=== PATIENT | male | born 1950 | race Caucasian/White ===

== ENCOUNTER 2019-03-17 11:51 | Inpatient (IN) | payer MEDICARE, MEDICAID ==
[~2019-03-17] VITALS: Ht 193 cm; Wt 91.2 kg
[2019-03-17 12:14] LABS: EOSINOPHILS % (AUTO) 2.3 % (0.0-6.0); HEMATOCRIT 36 % (39-51); HEMOGLOBIN 12.3 g/dL (13.5-17.5); LYMPHOCYTES # (AUTO) 1.2 /CMM (0.8-4.8); LYMPHOCYTES % (AUTO) 31.6 % (20.0-44.0); MEAN CORPUSCULAR HGB CONC 34 g/dl (31.0-36.0); MEAN CORPUSCULAR VOLUME 87 fL (80-96); MONOCYTES # (AUTO) 0.3 /CMM (0.1-1.30); MONOCYTES % (AUTO) 7.4 % (2.0-12.0); NEUTROPHILS # (AUTO) 2.2 /CMM (1.8-8.9); NEUTROPHILS % (AUTO) 57.7 % (43.0-81.0); PLATELET COUNT (AUTO) 238 /CMM (150-450); RED BLOOD CELL COUNT(AUTO) 4.13 MIL/uL (4.5-6.0); WHITE BLOOD COUNT (AUTO) 3.8 K/uL (4.3-11.0)
--- NOTE | 2019-03-17 12:16 | NUR ---
[facility] on 5150 from [place] agressive behavior/agitation. PT AAOX3, VSS. RR EVEN & UNLABORED. CALM & COOPERATIVE. DENIES CP, SOB, DIZZINESS, N/V, WEAKNESS @ THIS TIME. WILL CONT TO MONITOR. SHANITER @ BS.
[2019-03-17 12:21] LABS: CALCIUM, SERUM 9.2 mg/dL (8.5-10.1); CARBON DIOXIDE 25 mmol/L (21-32); CHLORIDE 108 mmol/L (98-107); CREATININE 1.2 mg/dL (0.6-1.3); GLUCOSE 103 mg/dL (74-106); POTASSIUM 3.5 mmol/L (3.5-5.1); SODIUM SERUM 144 mmol/L (136-145); UREA NITROGEN, BLOOD 24 mg/dL (7-18)
[2019-03-17 12:26] LABS: ALANINE AMINOTRANSFERASE 19 U/L (12-78); ALBUMIN 3.7 g/dL (3.4-5.0); ALKALINE PHOSPHATASE 113 U/L (46-116); ASPARTATE AMINOTRANSFERASE 18 U/L (15-37); BILIRUBIN,DIRECT 0.2 mg/dL (0.0-0.2); BILIRUBIN,TOTAL 0.9 mg/dL (0.2-1.0); TOTAL PROTEIN, SERUM 7.6 g/dL (6.4-8.2)
[2019-03-17 12:27] LABS: ACETAMINOPHEN 0 ug/ml (10-30); ALCOHOL, BLOOD < 3 mg/dL (0-0)
--- NOTE | 2019-03-17 12:35 | NUR ---
SOCORRO RADFORD @ BS FOR JOHNNYAL.
--- NOTE | 2019-03-17 13:30 | NUR ---
CALLED FOR MED-SURGE BED, TURNED IN MOVE SHEET, AND PAGED SHUKRI LONDON WHO CALLED BACK.
--- NOTE | 2019-03-17 13:32 | NUR ---
CALLED FOR GPS BED, TURNED IN MOVE SHEET
[2019-03-17] MEDS ORDERED: PARO10TA86 PO (13:38)
[2019-03-17] MEDS ORDERED: AMLO5TAB4 PO (13:38)
[2019-03-17] MEDS ORDERED: QUET25TA PO (13:38)
[2019-03-17] MEDS ORDERED: FAMO-131 PO (13:38)
[2019-03-17] MEDS ORDERED: LACT10SO PO (13:42)
[2019-03-17] MEDS ORDERED: CARV6.25 PO (13:42)
[2019-03-17] MEDS ORDERED: PERP2TAB PO ×2 (13:42)
[2019-03-17] MEDS ORDERED: FERR325T23 PO (13:42)
[2019-03-17] MEDS ORDERED: ASPI-1152 PO (13:42)
[2019-03-17] MEDS ORDERED: CHOL200059 PO (13:43)
[2019-03-17] MEDS ORDERED: BENA40TA67 PO (13:43)
[2019-03-17] MEDS ORDERED: ATOR20TA PO (13:43)
[2019-03-17 13:55] LABS: APPEARANCE,URINE Clear (CLEAR); BILIRUBIN,URINE SMALL (NEGATIVE); BLOOD, URINE Trace-intact Ery/uL (NEGATIVE); COLOR,URINE Dark (YELLOW); KETONES,URINE Trace (NEGATIVE); LEUKOCYTE ESTERASE ,URINE Negative (NEGATIVE); NITRITE, URINE Negative (NEGATIVE); PH,URINE 5.5 (5.0-8.0); PROTEIN,URINE Trace mg/dl (NEGATIVE); UGLUCOSE Negative (NEGATIVE)
[2019-03-17 14:10] LABS: BACTERIA,URINE Rare /HPF (None Seen); SQUAMOUS EPITHELIAL CELL,UR Rare /HPF (None Seen); WBC,URINE 0-2 /HPF (0-3)
--- NOTE | 2019-03-17 14:30 | NUR ---
Patient is resting comfortably in bed with eyes closed. Easily aroused. VSS
--- NOTE | 2019-03-17 15:39 | NUR ---
REPORT GIVEN TO MONA PORTILLO FOR TAMERA
--- NOTE | 2019-03-17 16:38 | NUR ---
Pt. arrived in the unit via a wheel chair and brought in by ER staff. Dr. Guerin covering for Dr. Scott made aware of the admission and gave order.
[2019-03-17 16:41] VITALS: BP 102/93
[2019-03-17] MEDS ORDERED: MAGNESIUM HYDROXIDE 30 ML UDC PO PRN (17:00)
[2019-03-17] MEDS ORDERED: BLOOD SUGAR DIAGNOSTIC 1 EACH STRIP IN ONE (17:00)
[2019-03-17] MEDS ORDERED: MAG HYDROX/AL HYDROX/SIMETH 30 ML UDC PO PRN (17:00)
[2019-03-17] MEDS ORDERED: ACETAMINOPHEN 325 MG TABLET PO PRN (17:00)
[2019-03-17] MEDS ORDERED: TEMAZEPAM 7.5 MG CAPSULE PO PRN (17:00)
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
[2019-03-17 20:00] VITALS: BP 144/88
[2019-03-18 08:00] VITALS: BP_SYST 124; BP_SYST 143; BP_DIAS 82; BP_DIAS 87
[2019-03-18] MEDS: ASPIRIN EC 81 MG TABLET.DR PO SCH (08:48)
[2019-03-18] MEDS: FERROUS SULFATE (325 MG) 325 MG/TAB TABLET PO SCH ×2 (08:48→17:08)
[2019-03-18] MEDS: FAMOTIDINE (20 MG) 20 MG TABLET PO SCH ×2 (08:48→17:08)
[2019-03-18] MEDS: CHOLECALCIFEROL 1,000 UNIT TABLET (VIT D3) PO SCH (08:49)
[2019-03-18] MEDS: CARVEDILOL 6.25 MG TABLET PO SCH ×2 (08:49→17:08)
[2019-03-18] MEDS: BENAZEPRIL HCL 20 MG TABLET PO SCH (08:49)
[2019-03-18] MEDS: ATORVASTATIN 10 MG TABLET PO SCH (08:49)
[2019-03-18] MEDS: AMLODIPINE BESYLATE 5 MG TABLET PO SCH (08:50)
[2019-03-18] MEDS: LACTULOSE 10 G/15 ML UDC (PYXIS) PO SCH (09:01)
--- NOTE | 2019-03-18 14:49 | NUR ---
[facility][phone][facility] and she stated that the pt can return to their facility but that she would prefer for the pt to be discharged to [facility] first for stabilization.
--- NOTE | 2019-03-18 14:51 | NUR ---
Initial Discharge Plan: Pt currently resides at [facility] located at [address] [place] [address]; ([phone]). Per facility, they will take the pt back but would like for him to be placed at a [facility] facility first. SW will work with the MD and the pt regarding appropriate discharge planning. SW will form a safe and proper discharge.
[2019-03-18 16:00] VITALS: BP 135/84
[2019-03-18] MEDS: QUETIAPINE FUMARATE 100 MG TABLET PO SCH ×2 (17:39→21:25)
[2019-03-18] MEDS: DIVALPROEX SODIUM 250 MG TABLET.DR PO SCH (17:39)
[2019-03-18 20:00] VITALS: BP 135/81
[2019-03-19 08:00] VITALS: BP 145/62
[2019-03-19] MEDS ORDERED: LORAZEPAM INJ 2 MG/ML VIAL IM ONE (09:00)
[2019-03-19] MEDS: DIVALPROEX SODIUM 250 MG TABLET.DR PO SCH ×3 (09:00→17:45)
[2019-03-19] MEDS: QUETIAPINE FUMARATE 100 MG TABLET PO SCH ×3 (09:00→21:47)
[2019-03-19] MEDS: CARVEDILOL 6.25 MG TABLET PO SCH ×2 (09:00→17:46)
[2019-03-19] MEDS: LACTULOSE 10 G/15 ML UDC (PYXIS) PO SCH (09:00)
[2019-03-19] MEDS ORDERED: OLANZAPINE 10 MG VIAL IM ONE (09:00)
[2019-03-19] MEDS: FAMOTIDINE (20 MG) 20 MG TABLET PO SCH ×2 (09:00→17:46)
[2019-03-19] MEDS: ATORVASTATIN 10 MG TABLET PO SCH (09:00)
[2019-03-19] MEDS: AMLODIPINE BESYLATE 5 MG TABLET PO SCH (09:00)
[2019-03-19] MEDS: PAROXETINE HCL 20 MG TABLET PO SCH (09:00)
[2019-03-19] MEDS: CHOLECALCIFEROL 1,000 UNIT TABLET (VIT D3) PO SCH (09:00)
[2019-03-19] MEDS: BENAZEPRIL HCL 20 MG TABLET PO SCH (09:00)
[2019-03-19] MEDS: FERROUS SULFATE (325 MG) 325 MG/TAB TABLET PO SCH ×2 (09:00→17:45)
[2019-03-19] MEDS: ASPIRIN EC 81 MG TABLET.DR PO SCH (09:00)
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
[2019-03-19 16:00] VITALS: BP 136/76
[2019-03-19 20:00] VITALS: BP 135/70
[2019-03-20 08:00] VITALS: BP 160/85
[2019-03-20] MEDS: PAROXETINE HCL 20 MG TABLET PO SCH (09:20)
[2019-03-20] MEDS: LACTULOSE 10 G/15 ML UDC (PYXIS) PO SCH (09:20)
[2019-03-20] MEDS: QUETIAPINE FUMARATE 100 MG TABLET PO SCH ×3 (09:20→21:13)
[2019-03-20] MEDS: ASPIRIN EC 81 MG TABLET.DR PO SCH (09:21)
[2019-03-20] MEDS: FAMOTIDINE (20 MG) 20 MG TABLET PO SCH ×2 (09:21→17:02)
[2019-03-20] MEDS: AMLODIPINE BESYLATE 5 MG TABLET PO SCH (09:21)
[2019-03-20] MEDS: DIVALPROEX SODIUM 250 MG TABLET.DR PO SCH ×2 (09:21→17:01)
[2019-03-20] MEDS: FERROUS SULFATE (325 MG) 325 MG/TAB TABLET PO SCH ×2 (09:21→17:01)
[2019-03-20] MEDS: ATORVASTATIN 10 MG TABLET PO SCH (09:21)
[2019-03-20] MEDS: BENAZEPRIL HCL 20 MG TABLET PO SCH (09:22)
[2019-03-20] MEDS: CHOLECALCIFEROL 1,000 UNIT TABLET (VIT D3) PO SCH (09:23)
[2019-03-20] MEDS: CARVEDILOL 6.25 MG TABLET PO SCH ×2 (09:24→17:02)
[2019-03-20 16:00] VITALS: BP 151/71
[2019-03-20 20:00] VITALS: BP 108/57
[2019-03-20] MEDS: LORAZEPAM 0.5 MG TABLET PO PRN (20:10)
[2019-03-20 22:01] VITALS: BP 109/66
[2019-03-21 08:00] VITALS: BP 137/72
[2019-03-21] MEDS: BENAZEPRIL HCL 20 MG TABLET PO SCH (09:16)
[2019-03-21] MEDS: DIVALPROEX SODIUM 250 MG TABLET.DR PO SCH ×2 (09:16→16:47)
[2019-03-21] MEDS: ASPIRIN EC 81 MG TABLET.DR PO SCH (09:16)
[2019-03-21] MEDS: LACTULOSE 10 G/15 ML UDC (PYXIS) PO SCH (09:16)
[2019-03-21] MEDS: PAROXETINE HCL 20 MG TABLET PO SCH (09:17)
[2019-03-21] MEDS: CHOLECALCIFEROL 1,000 UNIT TABLET (VIT D3) PO SCH (09:17)
[2019-03-21] MEDS: FAMOTIDINE (20 MG) 20 MG TABLET PO SCH ×2 (09:17→16:47)
[2019-03-21] MEDS: CARVEDILOL 6.25 MG TABLET PO SCH ×2 (09:17→16:48)
[2019-03-21] MEDS: FERROUS SULFATE (325 MG) 325 MG/TAB TABLET PO SCH ×2 (09:17→16:47)
[2019-03-21] MEDS: AMLODIPINE BESYLATE 5 MG TABLET PO SCH (09:17)
[2019-03-21] MEDS: QUETIAPINE FUMARATE 100 MG TABLET PO SCH ×3 (09:17→21:09)
[2019-03-21] MEDS: LORAZEPAM 0.5 MG TABLET PO PRN (09:18)
--- NOTE | 2019-03-21 09:18 | NUR ---
RN NOTES ADMINISTERED ATIVAN 0.5 MG PO PRN FOR ANXIETY PER PATIENT REQUEST, V/S TAKEN BP-137/72, P-71. CONTINUED MONITORING.
--- NOTE | 2019-03-21 09:37 | NUR ---
DIA faxed a referral to [facility] to the fax number: [phone].
[2019-03-21] MEDS: ATORVASTATIN 10 MG TABLET PO SCH (10:48)
--- NOTE | 2019-03-21 14:11 | NUR ---
Shen ([phone]) from [facility] contacted the and stated that the pt is accepted to their facility.
--- NOTE | 2019-03-21 15:00 | NUR ---
GROUP NOTE: SW prompted pt to participate in group session on this present day discussing "current issues you are having while being on a hold." Pt unable to participate due to his current aggressive behavior, pt is withdrawn and isolative.
[2019-03-21 16:00] VITALS: BP 155/98
[2019-03-21 19:54] VITALS: BP 112/64
[2019-03-22 09:22] VITALS: BP 121/59
[2019-03-22] MEDS: CHOLECALCIFEROL 1,000 UNIT TABLET (VIT D3) PO SCH (09:37)
[2019-03-22] MEDS: DIVALPROEX SODIUM 250 MG TABLET.DR PO SCH ×2 (09:37→17:53)
[2019-03-22] MEDS: ATORVASTATIN 10 MG TABLET PO SCH (09:37)
[2019-03-22] MEDS: FERROUS SULFATE (325 MG) 325 MG/TAB TABLET PO SCH ×2 (09:37→17:53)
[2019-03-22] MEDS: ASPIRIN EC 81 MG TABLET.DR PO SCH (09:38)
[2019-03-22] MEDS: AMLODIPINE BESYLATE 5 MG TABLET PO SCH (09:38)
[2019-03-22] MEDS: CARVEDILOL 6.25 MG TABLET PO SCH ×2 (09:38→17:53)
[2019-03-22] MEDS: PAROXETINE HCL 20 MG TABLET PO SCH (09:38)
[2019-03-22] MEDS: FAMOTIDINE (20 MG) 20 MG TABLET PO SCH ×2 (09:38→17:54)
[2019-03-22] MEDS: LACTULOSE 10 G/15 ML UDC (PYXIS) PO SCH (09:38)
[2019-03-22] MEDS: QUETIAPINE FUMARATE 100 MG TABLET PO SCH ×3 (09:38→21:15)
--- NOTE | 2019-03-22 15:00 | NUR ---
REFUSED LAB WORK.
[2019-03-22 16:00] VITALS: BP 119/69
--- NOTE | 2019-03-22 16:00 | NUR ---
REFUSED TO HAVE LINEN CHANGED.
[2019-03-22] MEDS: BENAZEPRIL HCL 20 MG TABLET PO SCH (16:14)
--- NOTE | 2019-03-22 16:19 | NUR ---
Group Note: SW prompted pt to participate in group session for the topic of discharge planning. Pt refused to attend and stated that he does not want to participate in group therapy. Pt appeared to be agitated and is aggressive at times.
--- NOTE | 2019-03-22 18:00 | NUR ---
IN ROOM MOST OF DAY,KEEPS TO SELF,MOSTLY NON-VERBAL.
[2019-03-22] MEDS: LORAZEPAM 0.5 MG TABLET PO PRN (19:55)
[2019-03-22 20:42] VITALS: BP 129/69
[2019-03-23 08:00] VITALS: BP 118/66
[2019-03-23] MEDS: QUETIAPINE FUMARATE 100 MG TABLET PO SCH ×3 (09:59→21:10)
[2019-03-23] MEDS: LACTULOSE 10 G/15 ML UDC (PYXIS) PO SCH (09:59)
[2019-03-23] MEDS: ASPIRIN EC 81 MG TABLET.DR PO SCH (10:00)
[2019-03-23] MEDS: PAROXETINE HCL 20 MG TABLET PO SCH (10:00)
[2019-03-23] MEDS: FERROUS SULFATE (325 MG) 325 MG/TAB TABLET PO SCH ×2 (10:00→17:45)
[2019-03-23] MEDS: CHOLECALCIFEROL 1,000 UNIT TABLET (VIT D3) PO SCH (10:00)
[2019-03-23] MEDS: ATORVASTATIN 10 MG TABLET PO SCH (10:00)
[2019-03-23] MEDS: CARVEDILOL 6.25 MG TABLET PO SCH ×2 (10:01→17:45)
[2019-03-23] MEDS: FAMOTIDINE (20 MG) 20 MG TABLET PO SCH ×2 (10:01→17:46)
[2019-03-23] MEDS: DIVALPROEX SODIUM 250 MG TABLET.DR PO SCH ×2 (10:01→17:45)
[2019-03-23] MEDS: BENAZEPRIL HCL 20 MG TABLET PO SCH (14:03)
[2019-03-23 16:01] VITALS: BP 139/76
--- NOTE | 2019-03-23 16:19 | NUR ---
GROUP NOTE: SW prompted pt to participate in group session on this present day discussing "medication compliance." on approach pt was agitated and yelled at SW to get out.
[2019-03-23] MEDS: AMLODIPINE BESYLATE 5 MG TABLET PO SCH (17:46)
[2019-03-23 20:21] VITALS: BP 154/77
[2019-03-24 08:00] VITALS: BP 130/72
[2019-03-24] MEDS: QUETIAPINE FUMARATE 100 MG TABLET PO SCH ×3 (08:49→22:10)
[2019-03-24] MEDS: CHOLECALCIFEROL 1,000 UNIT TABLET (VIT D3) PO SCH (08:49)
[2019-03-24] MEDS: FAMOTIDINE (20 MG) 20 MG TABLET PO SCH ×2 (08:49→16:26)
[2019-03-24] MEDS: AMLODIPINE BESYLATE 5 MG TABLET PO SCH (08:49)
[2019-03-24] MEDS: PAROXETINE HCL 20 MG TABLET PO SCH (08:49)
[2019-03-24] MEDS: ASPIRIN EC 81 MG TABLET.DR PO SCH (08:49)
[2019-03-24] MEDS: CARVEDILOL 6.25 MG TABLET PO SCH ×2 (08:49→16:26)
[2019-03-24] MEDS: DIVALPROEX SODIUM 250 MG TABLET.DR PO SCH ×2 (08:49→16:26)
[2019-03-24] MEDS: BENAZEPRIL HCL 20 MG TABLET PO SCH (08:49)
[2019-03-24] MEDS: FERROUS SULFATE (325 MG) 325 MG/TAB TABLET PO SCH ×2 (08:49→16:26)
[2019-03-24] MEDS: ATORVASTATIN 10 MG TABLET PO SCH (08:49)
[2019-03-24] MEDS: LACTULOSE 10 G/15 ML UDC (PYXIS) PO SCH (08:49)
--- NOTE | 2019-03-24 08:50 | NUR ---
RN NOTES PATIENT REFUSED MEDICATIONS AFTER STATING THAT HE WAS GOING TO TAKE THEM. ASKED PATIENT IF HE WAS SURE THAT HE DOES NOT WANT TO TAKE IT, REFUSED X3.
--- NOTE | 2019-03-24 15:52 | NUR ---
Group Note: SW prompted the pt to participate in group therapy but he became agitated and stated that he refuses to participate. SW left the pt due to his history with aggressive behavior.
[2019-03-24 16:00] VITALS: BP 147/85
[2019-03-24 20:00] VITALS: BP 119/57
[2019-03-25 08:00] VITALS: BP_SYST 100; BP_SYST 97; BP_DIAS 55; BP_DIAS 60
[2019-03-25] MEDS: CHOLECALCIFEROL 1,000 UNIT TABLET (VIT D3) PO SCH (08:01)
[2019-03-25] MEDS: ATORVASTATIN 10 MG TABLET PO SCH (08:01)
[2019-03-25] MEDS: QUETIAPINE FUMARATE 100 MG TABLET PO SCH ×3 (08:01→21:43)
[2019-03-25] MEDS: PAROXETINE HCL 20 MG TABLET PO SCH (08:01)
[2019-03-25] MEDS: ASPIRIN EC 81 MG TABLET.DR PO SCH (08:01)
[2019-03-25] MEDS: LACTULOSE 10 G/15 ML UDC (PYXIS) PO SCH (08:03)
[2019-03-25] MEDS: DIVALPROEX SODIUM 250 MG TABLET.DR PO SCH ×2 (08:04→16:27)
[2019-03-25] MEDS: FERROUS SULFATE (325 MG) 325 MG/TAB TABLET PO SCH ×2 (08:04→16:27)
[2019-03-25] MEDS: FAMOTIDINE (20 MG) 20 MG TABLET PO SCH ×2 (08:04→16:27)
[2019-03-25] MEDS: CARVEDILOL 6.25 MG TABLET PO SCH ×2 (08:07→16:27)
[2019-03-25] MEDS: BENAZEPRIL HCL 20 MG TABLET PO SCH (08:08)
[2019-03-25] MEDS: AMLODIPINE BESYLATE 5 MG TABLET PO SCH (08:08)
--- NOTE | 2019-03-25 14:55 | NUR ---
GROUP NOTE: SW prompted the pt to participate in group therapy but he became agitated and stated that he refuses to participate. SW did not attempt to do individual intervention due to his history with aggressive behavior.
[2019-03-25 20:00] VITALS: BP 117/60
[2019-03-26 08:00] VITALS: BP 111/58
[2019-03-26] MEDS: CHOLECALCIFEROL 1,000 UNIT TABLET (VIT D3) PO SCH (08:12)
[2019-03-26] MEDS: PAROXETINE HCL 20 MG TABLET PO SCH (08:13)
[2019-03-26] MEDS: LACTULOSE 10 G/15 ML UDC (PYXIS) PO SCH (08:13)
[2019-03-26] MEDS: QUETIAPINE FUMARATE 100 MG TABLET PO SCH ×3 (08:13→21:33)
[2019-03-26] MEDS: CARVEDILOL 6.25 MG TABLET PO SCH ×2 (08:13→16:49)
[2019-03-26] MEDS: DIVALPROEX SODIUM 250 MG TABLET.DR PO SCH ×2 (08:13→17:10)
[2019-03-26] MEDS: ASPIRIN EC 81 MG TABLET.DR PO SCH (08:13)
[2019-03-26] MEDS: FAMOTIDINE (20 MG) 20 MG TABLET PO SCH ×2 (08:13→16:49)
[2019-03-26] MEDS: ATORVASTATIN 10 MG TABLET PO SCH (08:13)
[2019-03-26] MEDS: AMLODIPINE BESYLATE 5 MG TABLET PO SCH (08:14)
[2019-03-26] MEDS: BENAZEPRIL HCL 20 MG TABLET PO SCH (08:14)
[2019-03-26] MEDS: FERROUS SULFATE (325 MG) 325 MG/TAB TABLET PO SCH ×2 (08:15→16:49)
[2019-03-26 16:03] VITALS: BP 139/76
[2019-03-26 20:00] VITALS: BP 129/64
[2019-03-27 08:00] VITALS: BP 131/70
[2019-03-27] MEDS: LACTULOSE 10 G/15 ML UDC (PYXIS) PO SCH (08:44)
[2019-03-27] MEDS: ATORVASTATIN 10 MG TABLET PO SCH (08:46)
[2019-03-27] MEDS: CHOLECALCIFEROL 1,000 UNIT TABLET (VIT D3) PO SCH (08:46)
[2019-03-27] MEDS: FAMOTIDINE (20 MG) 20 MG TABLET PO SCH ×2 (08:46→16:06)
[2019-03-27] MEDS: ASPIRIN EC 81 MG TABLET.DR PO SCH (08:46)
[2019-03-27] MEDS: PAROXETINE HCL 20 MG TABLET PO SCH (08:46)
[2019-03-27] MEDS: DIVALPROEX SODIUM 250 MG TABLET.DR PO SCH ×2 (08:46→16:07)
[2019-03-27] MEDS: FERROUS SULFATE (325 MG) 325 MG/TAB TABLET PO SCH ×2 (08:46→16:06)
[2019-03-27] MEDS: CARVEDILOL 6.25 MG TABLET PO SCH ×2 (08:47→16:03)
[2019-03-27] MEDS: BENAZEPRIL HCL 20 MG TABLET PO SCH (08:47)
[2019-03-27] MEDS: QUETIAPINE FUMARATE 100 MG TABLET PO SCH ×3 (08:47→21:04)
[2019-03-27] MEDS: AMLODIPINE BESYLATE 5 MG TABLET PO SCH (08:47)
[2019-03-27 16:00] VITALS: BP 103/50
[2019-03-27 20:08] VITALS: BP 100/60
--- NOTE | 2019-03-28 05:27 | NUR ---
GPS RN NOTES: PT. REFUSED WEEKLY SKIN REASSESSMENT, AND PICTURES TAKEN, ENCOURAGED , EXPLINED RISKS AND BENEFITS STILL REFUSED.
[2019-03-28 08:00] VITALS: BP 113/61
[2019-03-28] MEDS: ATORVASTATIN 10 MG TABLET PO SCH (08:21)
[2019-03-28] MEDS: ASPIRIN EC 81 MG TABLET.DR PO SCH (08:21)
[2019-03-28] MEDS: QUETIAPINE FUMARATE 100 MG TABLET PO SCH (08:21)
[2019-03-28] MEDS: CHOLECALCIFEROL 1,000 UNIT TABLET (VIT D3) PO SCH (08:21)
[2019-03-28] MEDS: PAROXETINE HCL 20 MG TABLET PO SCH (08:23)
[2019-03-28] MEDS: FERROUS SULFATE (325 MG) 325 MG/TAB TABLET PO SCH (08:24)
[2019-03-28] MEDS: FAMOTIDINE (20 MG) 20 MG TABLET PO SCH (08:24)
[2019-03-28] MEDS: DIVALPROEX SODIUM 250 MG TABLET.DR PO SCH (08:24)
[2019-03-28] MEDS: CARVEDILOL 6.25 MG TABLET PO SCH (08:25)
[2019-03-28] MEDS: BENAZEPRIL HCL 20 MG TABLET PO SCH (08:25)
[2019-03-28] MEDS: LACTULOSE 10 G/15 ML UDC (PYXIS) PO SCH (08:25)
[2019-03-28 08:26] VITALS: BP 113/61
[2019-03-28] MEDS: AMLODIPINE BESYLATE 5 MG TABLET PO SCH (08:26)
--- NOTE | 2019-03-28 14:22 | NUR ---
Discharge Note: Pt was discharged to [facility] (SNF) located at [address] [place] [address], . Pt was transported via [facility] at 2:30pm. There was no one to notify regarding the pts discharge. Upon discharge, the pt appeared to be in a euthymic mood and presented with a calm affect. The pt denied both suicidal and homicidal ideation as well as auditory and visual hallucinations. Pt will be under the care of his psychiatrist, [place], [place] [address] [place] [address]; and his chicken picker, Dr. Horton, located at [address] [facility], [address], [place] [address]; .
--- NOTE | 2019-03-28 14:46 | NUR ---
GPS RATCHET SETTER NOTE: PATIENT DISCHARGER TO [facility], PT IN STABLE CONDITION, VSS, NO S/S DISTRESS NOTED , NO AGITATION COMBATIVE BEHAVIOR .PT DENIES SI/HI, COMPLIANT WITH MEDICATIONS AND TX, AMBULATORY SELF CARE, A/OX2. DR KIDD NOTIFIED CONTINUE MEDICATIONS, DC HOLD. EXIT CARE DONE PRINTED, PT REFUSED TO SIGN REFUSED SKIN ASSESSMENT. ALL BELONGINGS RETURNED TO PATIENT.
== END 2019-03-28 14:30 | DRG 885 ==
LOC: ER 11:53 → GPS 14:56
PROVIDERS: ADMIT Psychiatry & Neurology Psychiatry; ATTEND Family Medicine
DX: F25.9 Schizoaffective disorder, unspecified (principal); F29 Unspecified psychosis not due to a substance or known physiological condition; E78.5 Hyperlipidemia, unspecified; F41.9 Anxiety disorder, unspecified; F32.9 Major depressive disorder, single episode, unspecified; K21.9 Gastro-esophageal reflux disease without esophagitis; K59.00 Constipation, unspecified; I10 Essential (primary) hypertension; F17.210 Nicotine dependence, cigarettes, uncomplicated; D63.8 Anemia in other chronic diseases classified elsewhere
CPT/HCPCS: 36415; 80048-TC; 80076-TC; 80305; 81000-TC; 85025-TC; 87081-TC; G0480; J2060; J3490